=== PATIENT | female | born 1965 | race Caucasian/White ===

== ENCOUNTER 2018-07-10 17:20 | Emergency (ER) ==
[2018-07-10 17:41] VITALS: TEMP 98.5; BMI 17.6
[2018-07-10 17:51] VITALS: BP 113/87
--- NOTE | 2018-07-10 18:26 | CT ---
Exam: CT pelvis without contrast History: Fall with hip pain Technique: [address] bony pelvis with multiplanar reformations FINDINGS: The pelvic ring is intact. The acetabula and femoral hips appear normal. Degenerative ch wilver of L5 S1. The sacrum and coccyx are intact. No acute visceral abnormalities are seen. No acut e peripheral soft tissue abnormalities are seen. Impression: No acute findings of the hips or bony pelvis.
[2018-07-10] MEDS ORDERED: ROCEPHIN 1 GM in SODIUM CHLORIDE 50 ML IV STA (18:38)
--- NOTE | 2018-07-10 18:41 | ED.PDOC ---
General ED Provider: Dr. GASTON GOSS-ER Chief Complaint: Respiratory Complaint Stated Complaint: maddy had a cough and i cant move my hips Time Seen by Physician: 17:30 Mode of Arrival: Walk-In Information Source: Patient Exam Limitations: No limitations Nursing and Triage Documentation Reviewed and Agree: Yes Does patient meet sepsis criteria?: No System Inflammatory Response Syndrome: Not Applicable Sepsis Protocol: For patient's 13 years and over: Temp is 96.8 and below OR 101 and greater Pulse >90 BPM Resp >20/minute Acutely Altered Mental Status Are patient's symptoms suggestive of a new infection, such as: -Pneumonia -Skin, Soft Tissue -Endocarditis -UTI -Bone, Joint Infection -Implantable Device -Acute Abdominal Infection -Wound Infection -Meningitis -Blood Stream Catheter Infection -Unknown Respiratory Complaint Exam - Respiratory Complaint/Exam Onset/Duration: few days Symptoms Are: Still present Timing: Constant Current Severity: None Location: Chest Character: Reports: Non-productive cough Aggravating: Reports: URI Associated Signs and Symptoms: Reports: Dyspnea, Chest pain Tuberculosis Risk Factors: Reports: None Status Asthmaticus Risk Factors: Reports: None Home Oxygen Use: No Recent Stress Test: No Recent Echo/LV Function: No Current Antibiotic Use: No Current Asthma Medication Use: No Respiratory Distress: None Inadequate Respiratory Effort: No Dysphagia Present: No Stridor Present: No JVD Present: No Accessory Muscle Use: No Retractions: Diaphragmatic Diminished Breath Sounds: No Sinus Tenderness: None Grunting Respirations: No Kussmaul Respirations: No Differential Diagnoses: Pneumonia, Bronchitis Non-Traumatic Chest Pain Syncope: EKG Performed Review of Systems - Review Of Systems Constitutional: Reports: No symptoms Eyes: Reports: No symptoms Ears, Nose, Mouth, Throat: Reports: No symptoms Respiratory: Reports: Cough, Short of air Cardiac: Reports: No symptoms GI: Reports: No symptoms : Reports: No symptoms Musculoskeletal: Reports: Joint pain Skin: Reports: No symptoms Neurological: Reports: No symptoms Endocrine: Reports: No symptoms Hematologic/Lymphatic: Reports: No symptoms All Other Systems: Reviewed and Negative Past Medical History - Past Medical History Previously Healthy: No Endocrine: Reports: Unknown Cardiovascular: Reports: Unknown Respiratory: Reports: Unknown Hematological: Reports: Unknown Gastrointestinal: Reports: Unknown Genitourinary: Reports: Unknown Neuro/Psych: Reports: Unknown Musculoskeletal: Reports: Unknown Cancer: Reports: Unknown Last Menstrual Period: N/A - Surgical History General Surgical History: Reports: Unknown - Family History Family History: Reports: Unknown - Social History Smoking Status: Current every day smoker, Heavy tobacco smoker Hx Substance Use: No Alcohol Screening: None - Immunizations Tetanus Shot up to Date: No Physical Exam - Physical Exam Appearance: Well-appearing, No pain distress, Well-nourished Eyes: EMELI ENT: Ears normal, Nose normal, Oropharynx normal Neck: Supple Respiratory: Airway patent, Breath sounds clear, Breath sounds equal, Respirations nonlabored Cardiovascular: RRR GI/: Soft, Nontender, No masses, Bowel sounds normal, No Organomegaly Musculoskeletal: Normal strength, ROM intact, No edema, No calf tenderness Skin: Warm, Dry, Normal color Neurological: Sensation intact, Motor intact, Reflexes intact, Cranial nerves intact, Alert, Oriented Psychiatric: Affect appropriate, Mood appropriate Interpretation - Radiology Interpretation Radiology Interpretation By: Radiologist Radiology Results: Positive Exam Interpreted: CT Scan - EKG Interpretation Time of EKG #1: 18:42 Rate: Normal Rhythm: Sinus Ectopy: None Mcclave: NL ST Segment: Normal Interpretation: nsr Critical Care Note - Critical Care Note Total Time (mins): 0 Course - Course Hematology/Chemistry: 07/10/18 17:43 07/10/18 17:43 Orders, Labs, Meds: Lab Review 07/10/18 07/10/18 07/10/18 17:24 17:27 17:43 WBC 24.63 H RBC 3.70 L Hgb 10.2 L Hct 30.0 L MCV 81.1 MCH 27.6 MCHC 34.0 RDW Coeff of Giana 13.5 Plt Count 301 Immature Gran % (Auto) 1.8 Neut % (Auto) 92.7 Lymph % (Auto) 1.9 L Hudson % (Auto) 3.2 Eos % (Auto) 0.0 Baso % (Auto) 0.4 Immature Gran # (Auto) 0.4 Neut # (Auto) 22.8 H Lymph # (Auto) 0.5 L Hudson # (Auto) 0.8 Eos # (Auto) 0.0 Baso # (Auto) 0.1 Puncture Site Rr O2 Saturation 98.0 ABG pH 7.462 H ABG pCO2 31.4 L ABG pO2 94.0 ABG HCO3 22.4 ABG Total CO2 23 ABG Base Excess -1 Niraj Test + FiO2 % 21.0 Sodium Potassium Chloride Carbon Dioxide Anion Gap BUN Creatinine Estimated GFR (MDRD) BUN/Creatinine Ratio Glucose Calcium Total Bilirubin AST ALT Alkaline Phosphatase Total Protein Albumin Globulin Albumin/Globulin Ratio Influ A Molecular Assay Negative by naat Influ B Molecular Assay Negative by naat 07/10/18 17:43 WBC RBC Hgb Hct MCV MCH MCHC RDW Coeff of Giana Plt Count Immature Gran % (Auto) Neut % (Auto) Lymph % (Auto) Hudson % (Auto) Eos % (Auto) Baso % (Auto) Immature Gran # (Auto) Neut # (Auto) Lymph # (Auto) Hudson # (Auto) Eos # (Auto) Baso # (Auto) Puncture Site O2 Saturation ABG pH ABG pCO2 ABG pO2 ABG HCO3 ABG Total CO2 ABG Base Excess Niraj Test FiO2 % Sodium 131.2 L Potassium 2.70 L* Chloride 95.6 L Carbon Dioxide 24.5 Anion Gap 13.80 BUN 12.8 Creatinine 0.56 L Estimated GFR (MDRD) 113.00 BUN/Creatinine Ratio 22.85 Glucose 159.5 H Calcium 8.13 L Total Bilirubin 0.42 AST 74.7 H ALT 37.9 H Alkaline Phosphatase 211.5 H Total Protein 5.16 L Albumin 2.45 L Globulin 2.71 Albumin/Globulin Ratio 0.90 Influ A Molecular Assay Influ B Molecular Assay Orders Category Date Time Status ABG DRAW REQUEST Stat CARDIO 07/10/18 17:25 Completed EKG-(ED ONLY) Stat CARDIO 07/10/18 17:25 Completed ED IV/MEDIPORT/POWERPORT .ONCE EMERGENCY 07/10/18 18:38 Active ABG Stat LAB 07/10/18 17:24 Completed BLOOD CULTURE (ED ONLY) Stat LAB 07/10/18 Ordered CBC W/ AUTO DIFF Stat LAB 07/10/18 17:43 Completed COMPREHENSIVE METABOLIC PANEL Stat LAB 07/10/18 17:43 Completed FLU A/B MOLECULAR Stat LAB 07/10/18 17:27 Completed 0.9 % Sodium Chloride [Saline Flush] MEDS 07/10/18 18:38 Ordered 1 syr IVF PRN PRN Ceftriaxone Sodium [Rocephin] 1 gm MEDS 07/10/18 18:38 Active 0.9 % Sodium Chloride [Sodium Chloride] [address] CHEST W/O CONTRAST Stat RADS 07/10/18 17:[address] PELVIS W/O CONTRAST Stat RADS 07/10/18 17:25 Completed Medications Generic Name Dose Route Start Last Admin Trade Name Freq PRN Reason Stop Dose Admin Ceftriaxone Sodium 1 gm/ 50 mls @ 75 mls/hr 07/10/18 18:38 Sodium Chloride IV 07/10/18 19:17 ONCE STA Sodium Chloride 1 syr 07/10/18 18:38 Saline Flush IVF PRN PRN To flush IV Vital Signs: Temp Pulse Resp BP Pulse Ox 07/10/18 17:50 112 H 113/87 07/10/18 17:29 98.5 F 116 H 18 103/54 L 95 Departure - Departure Time of Disposition: 18:42 Disposition: TSF SHORT-TRM HOSP Discharge Problem: Pneumonia Qualifiers: Pneumonia type: due to unspecified organism Laterality: unspecified laterality Lung location: unspecified part of lung Qualified Code(s): J18.9 - Pneumonia, unspecified organism Hip pain Qualifiers: Laterality: right Qualified Code(s): M25.551 - Pain in right hip Instructions: Pneumonitis (ED) Condition: Fair Pt referred to PMD for follow-up: Yes IPMP verified?: No Allergies/Adverse Reactions: Allergies carbamazepine [From Tegretol] Adverse Reaction (Verified 07/10/18 17:36) codeine Adverse Reaction (Verified 07/10/18 17:36) Penicillins Adverse Reaction (Verified 07/10/18 17:36) phenytoin [From Dilantin] Adverse Reaction (Verified 07/10/18 17:36) tramadol [From Ultram] Adverse Reaction (Verified 07/10/18 17:36) Home Medications: Ambulatory Orders 1 [No Reported Medications] 07/10/18 Transfer Form Completed: Yes Disposition Discussed With: Patient
--- NOTE | 2018-07-10 18:42 | CT ---
EXAM: CT chest without contrast HISTORY: Hip pain after fall COMPARISON: None TECHNIQUE: CT chest performed without intravenous contrast. Coronal and sagittal reformatted images obtained. Thoracic inlet appears normal. Heart normal in size. No pericardial. Trace pericardial FINDINGS: Thoracic inlet appears normal. Heart normal in size. Trace pericardial effusion. Olivares ry calcifications. Aorta normal in caliber. Atherosclerosis with bulky atherosclerotic calcificatio n infrarenal abdominal aorta causing severe aortic narrowing. No acute abnormalities of the bones. Degenerative change in the spine. Central airway patent. Mild centrilobular emphysema. Extensive c onsolidation in the right lower lobe appears somewhat mass-like with additional consolidation extendi ng into the right upper lobe with additional area of nodular consolidation seen in the anterior aspec t right upper lobe. Esophagus unremarkable. Evaluation for lymphadenopathy limited without contrast . Right hilar fullness may represent lymphadenopathy. No pleural effusion. No pneumothorax. IMPRESSION: 1. Extensive consolidation in the right lower lobe appears somewhat mass-like with additional consol idation extending into the right upper lobe with additional area of nodular consolidation seen in the anterior aspect right upper lobe. Findings most likely represent extensive pneumonia. Malignancy c annot be excluded given mass-like and nodular appearance and CT chest follow-up with contrast recomme nded in 4 weeks. A component of contusion not excluded in the setting of trauma, though less likely. Clinical correlation recommended. 2. Evaluation for lymphadenopathy limited without contrast. Right hilar fullness may represent lymp hadenopathy.) 3. Mild emphysema. 4. Trace pericardial effusion. 5. Atherosclerosis with bulky atherosclerotic calcification infrarenal abdominal aorta causing sever e aortic narrowing. This is poorly evaluated on noncontrast CT and can be correlate with CT angiogra m abdomen pelvis. 6. Coronary calcifications. Finding #[address] Og 6:35 p.m. 07/10/2017
[2018-07-10] MEDS ORDERED: ROCEPHIN ONE (18:55)
== END 2018-07-10 19:30 | disposition short-term general hospital (02) ==
LOC: ED 17:20
DX: J18.9 Pneumonia, unspecified organism (principal); M25.551 Pain in right hip; F17.210 Nicotine dependence, cigarettes, uncomplicated
CPT/HCPCS: 36415; 80053; 82803; 85025; 87040; 87070; 87186; 87502; 93005; 93010; 96365; 99285

== ENCOUNTER 2018-07-10 19:34 | Outpatient (CLI) ==
[2018-07-10 17:41] VITALS: BMI 17.6
== END 2018-07-10 19:54 | disposition short-term general hospital (02) ==
LOC: AMBL 19:34
PROVIDERS: ATTEND Family Medicine
DX: J18.9 Pneumonia, unspecified organism (principal); M25.559 Pain in unspecified hip; R00.0 Tachycardia, unspecified